=== PATIENT | female | born 1970 | race Caucasian/White ===

== ENCOUNTER 2016-08-31 00:02 | Emergency (ER) | payer MEDICARE, OTHER ==
--- NOTE | 2016-08-31 00:30 | ED ---
General Adult HPI - General Chief complaint: Upper Respiratory Infection Stated complaint: nicole, cough Time Seen by Provider: 08/31/16 00:02 Source: patient, EMS, RN notes reviewed Mode of arrival: EMS - History of Present Illness Initial comments: This is a 45-year-old female who was brought in by EMS for evaluation of low back pain after falling out of bed. She [id number] out of bed about 1 foot to the ground EMS found her to be landing on her face. She complains of a cough for about one week she does a history of a positive PPD test about 5 or 6 years ago. She is never been diagnosed with active TB. She is a smoker she states she's had a cough no fevers chills sweats no phlegm production. Just complains of increased low back pain she has chronic low back pain. She denies any loss of function to her upper or lower extremities no pain in her face nose teeth jaw. No neck pain. - Related Data Home Medications Medication Instructions Recorded Confirmed Carvedilol [Coreg] 08/31/16 Chlorzoxazone 08/31/16 Cholecalciferol [Vitamin D3] 08/31/16 DULoxetine HCL [Cymbalta] 08/31/16 Felodipine [Felodipine ER] 08/31/16 Fenofibrate Nanocrystallized 08/31/16 [Fenofibrate] Fluticasone Propionate [Flovent 08/31/16 Diskus] Fluticasone/Salmeterol [Advair 08/31/16 250-50 Diskus] Furosemide [Lasix] 08/31/16 Gabapentin [Neurontin] 08/31/16 Haloperidol [Haldol] 08/31/16 Hydrocodone/Acetaminophen [Vicodin 08/31/16 5-300 mg Tablet] QUEtiapine [SEROquel] 08/31/16 Trihexyphenidyl HCl [Artane] 08/31/16 clonazePAM [KlonoPIN] 08/31/16 diphenhydrAMINE HCL [Benadryl] 08/31/16 levETIRAcetam [Keppra] 08/31/16 traZODone HCL 08/31/16 Previous Rx's Medication Instructions Recorded Azithromycin [Zithromax Z-pack] 250 mg PO DIRECTED #6 tab 08/31/16 predniSONE 20 mg PO BID #10 tab 08/31/16 Allergies Allergy/AdvReac Type Severity Reaction Status Date / Time morphine Allergy Intermediate Anaphylaxis Verified 08/31/16 00:13 levofloxacin [From Levaquin] Allergy Anaphylaxis Verified 08/31/16 00:15 aspirin AdvReac Intermediate Anaphylaxis Verified 08/31/16 00:14 Review of Systems ROS Statement: Those systems with pertinent positive or pertinent negative responses have been documented in the HPI. ROS Other: All systems not noted in ROS Statement are negative. Past Medical History Past Medical History: COPD, Hypertension, Thyroid Disorder History of Any Multi-Drug Resistant Organisms: None Reported Past Psychological History: No Psychological Hx Reported Smoking Status: Current every day smoker Past Alcohol Use History: None Reported Past Drug Use History: None Reported General Exam - General Exam Comments Initial Comments: This is a well-developed well-nourished awake alert oriented 3 female General appearance: alert, in no apparent distress Head exam: Present: atraumatic, normocephalic, normal inspection Eye exam: Present: normal appearance, PERRL, EOMI. Absent: scleral icterus, conjunctival injection, periorbital swelling ENT exam: Present: normal exam, mucous membranes moist Neck exam: Present: normal inspection. Absent: tenderness, meningismus, lymphadenopathy Respiratory exam: Present: decreased breath sounds. Absent: respiratory distress, wheezes, rales, rhonchi, stridor Cardiovascular Exam: Present: regular rate, normal rhythm, normal heart sounds. Absent: systolic murmur, diastolic murmur, rubs, gallop, clicks GI/Abdominal exam: Present: soft, normal bowel sounds. Absent: distended, tenderness, guarding, rebound, rigid Extremities exam: Present: normal inspection, full ROM, normal capillary refill. Absent: tenderness, pedal edema, joint swelling, calf tenderness Back exam: Present: normal inspection, tenderness, paraspinal tenderness. Absent: CVA tenderness (R), CVA tenderness (L), vertebral tenderness, rash noted Neurological exam: Present: alert, oriented X3, CN II-XII intact Psychiatric exam: Present: normal affect, normal mood Skin exam: Present: warm, dry, intact, normal color. Absent: rash Course Vital Signs 08/31/16 08/31/16 00:08 01:11 Temperature 97.4 F L Pulse Rate 85 88 Respiratory 20 Rate Blood Pressure 116/59 O2 Sat by Pulse 94 L Oximetry Medical Decision Making - Medical Decision Making Patient did get improvement after the updraft she'll be discharged on antibiotics. We did a long discussion lasted 3.2 minutes for smoking cessation. - Radiology Data Radiology results: report reviewed, image reviewed (I did review the imaging and reports there is a limited infiltrate in the left lung also degenerative changes to the lumbar spine no acute changes) Disposition Clinical Impression: Pneumonia, COPD exacerbation, Lumbar strain Disposition: HOME SELF-CARE Condition: Good Instructions: Bacterial Pneumonia (ED), COPD (Chronic Obstructive Pulmonary Disease) (ED), How to Stop Smoking (ED) Prescriptions: Azithromycin [Zithromax Z-pack] 250 mg PO DIRECTED #6 tab predniSONE 20 mg PO BID #10 tab
--- NOTE | 2016-08-31 00:50 | XR ---
EXAMINATION TYPE: XR chest 2V DATE OF EXAM: 08/31/2016 12:42 AM COMPARISON: 03/04/2013 HISTORY: Cough TECHNIQUE: Frontal and lateral views of the chest are obtained. FINDINGS: Heart and mediastinum are normal. There is possible small patch of infiltrate in the left midlung. The other lung gambino are clear. There is no pleural effusion. IMPRESSION: Possible minimal pneumonia in the left midlung is new compared to old exam.
--- NOTE | 2016-08-31 00:51 | XR ---
EXAMINATION TYPE: XR lumbosacral spine min 4V DATE OF EXAM: 08/31/2016 12:42 AM COMPARISON: 10/01/2013 HISTORY: Low back pain TECHNIQUE: 5 views FINDINGS: Fairly normal alignment. There is moderate narrowing at L3-4 disc with sclerosis and vacuum disc. Pos terior elements are intact. There is no compression fracture. Sacroiliac joints are normal. IMPRESSION: There is moderate spondylosis at L3-4. No fracture. There is progression of the disc dise ase compared to old exam. There is significant sclerosis and this raises the possibility of old chron ic discitis.
[2016-08-31] MEDS ORDERED: IPRATROPIUM-ALBUTEROL 3 ML NEB INHALATION STA (00:55)
[2016-08-31] MEDS ORDERED: AZITHROMYCIN 500 MG TAB PO STA (00:58)
[2016-08-31] MEDS ORDERED: BENZONATATE 100 MG CAP PO STA (00:58)
[2016-08-31 03:00] VITALS: BP 138/76; PULSE 78; RESP 22; TEMP 98.8
== END 2016-08-31 03:01 | disposition home or self-care (01) ==
LOC: EC 00:02
DX: J18.9 Pneumonia, unspecified organism (principal); J44.1 Chronic obstructive pulmonary disease with (acute) exacerbation; S39.012A Strain of muscle, fascia and tendon of lower back, initial encounter; W06.XXXA Fall from bed, initial encounter; I10 Essential (primary) hypertension; E07.9 Disorder of thyroid, unspecified; Z79.899 Other long term (current) drug therapy; Z79.51 Long term (current) use of inhaled steroids; F17.200 Nicotine dependence, unspecified, uncomplicated; Z88.1 Allergy status to other antibiotic agents; Z88.5 Allergy status to narcotic agent; Z88.6 Allergy status to analgesic agent
CPT/HCPCS: 71020; 72110; 94640; 99284

== ENCOUNTER → 2017-02-05 | Outpatient (CLI) | payer MEDICARE, OTHER ==
--- NOTE | 2017-02-05 15:13 | CT ---
EXAMINATION TYPE: CT shoulder LT wo con DATE OF EXAM: 02/05/2017 COMPARISON: NONE HISTORY: Recurrent left shoulder dislocations. CT DLP: 443 mGycm Automated exposure control for dose reduction was used. FINDINGS: There is severe degenerative change in the glenohumeral joint with remodeling of the gracie l head and pseudocystic change. The glenoid is eroded and thinned. There is decentering of the gracie l head within the glenoid. No fracture or dislocation is seen. IMPRESSION: SEVERE DEGENERATIVE CHANGE WITH LOSS OF THE GLENOID CUP AND LOSS OF THE ROUNDNESS OF THE HUMERAL HEAD . THIS LIKELY EXPLAINS THE DISLOCATIONS. IS ALSO STRONGLY SUSPICIOUS FOR COMPLETE LOSS OF THE LABRUM.
== END | disposition home or self-care (01) ==
LOC: RADCTMAIN 14:35
PROVIDERS: ATTEND Orthopaedic Surgery Sports Medicine
DX: S43.005A Unspecified dislocation of left shoulder joint, initial encounter (principal)

== ENCOUNTER → 2017-02-24 | Outpatient (CLI) | payer MEDICARE, OTHER ==
--- NOTE | 2017-02-24 14:21 | USB ---
Reason for exam: history of breast cancer, mastectomy. History: Patient has history of breast cancer at age 35. Family history of breast cancer in mother and breast cancer in sister. Mastectomy of both breasts. Physical Findings: Nurse did not find any significant physical abnormalities on exam. US Breast BILAT Right breast ultrasound includes all four quadrants, the retroareolar region and axilla. Finding demonstrates a 5 x 3 x 5mm lesion too small to characterize at 7 o'clock, possibly lymph node or some tissue heterogeneity. A 6 month follow up recommended to exclude an early small mass. These results were verbally communicated with the patient and result sheet given to the patient on 02/24/17. ASSESSMENT: Probably benign, BI-RAD 3 RECOMMENDATION: Ultrasound of the right breast in 6 months. [facility]
== END | disposition home or self-care (01) ==
LOC: RADUSWWP 13:04
PROVIDERS: ATTEND Family Medicine
DX: R92.8 Other abnormal and inconclusive findings on diagnostic imaging of breast (principal); Z85.3 Personal history of malignant neoplasm of breast

== ENCOUNTER 2022-05-27 14:42 | Emergency (ER) | payer MEDICARE, OTHER ==
[2022-05-27 14:47] VITALS: TEMP 98.5
--- NOTE | 2022-05-27 15:09 | XR ---
EXAMINATION TYPE: XR foot complete RT DATE OF EXAM: 05/27/2022 COMPARISON: NONE HISTORY: Injury TECHNIQUE: Frontal, lateral and oblique images of the right ankle are obtained. COMPARISON: None. FINDINGS: Comminuted moderately displaced fractures of the midshaft of the second and third metatarsa ls and mildly fracture of the base of the fourth metatarsal. Suspected avulsion fracture at the base of the first metatarsal with adjacent fragment along its medial aspect. No dislocations. There is jose r rounding edema of the dorsal foot overlying the metacarpals. Dorsal midfoot osteophytosis. IMPRESSION: Comminuted moderately displaced fractures of the mid shafts of the second and third metatarsals with mildly displaced fracture of the base of the fourth metatarsal and suspected avulsion fracture at the base of the first metatarsal.
[2022-05-27] MEDS ORDERED: HYDROmorphone 1 MG/ML 1 ML SYRINGE IVP STA (15:59)
[2022-05-27] MEDS ORDERED: SODIUM CHLORIDE 0.9% 1,000 ML IV STA (15:59)
--- NOTE | 2022-05-27 16:04 | ED ---
General Adult HPI - General Chief complaint: Extremity Injury, Lower Stated complaint: Fall-R foot injury Time Seen by Provider: 05/27/22 15:02 Source: patient Mode of arrival: ambulatory Limitations: no limitations - History of Present Illness Initial comments: Dictation was produced using [employer] dictation software. please excuse any grammatical, word or spelling errors. Chief Complaint: 51-year-old female presents to the emergency Department with right foot injury History of Present Illness: 51-year-old female presents to the emergency department right foot injury. Last week patient states that she had the door slam into her foot. States that was so forceful that her foot got caught in door. Patient didn't think much of it. She called her primary care doctor who said that she needed an x-ray of her foot. Given walking around on it. She notes that there is significant bruising. Patient states that she has significant pain. The ROS documented in this emergency department record has been reviewed and co nfirmed by me. Those systems with pertinent positive or negative responses have been documented in the HPI. All other systems are other negative and/or noncontributory. PHYSICAL EXAM: General Impression: Alert and oriented x3, not in acute distress HEENT: Normocephalic atraumatic, extra-ocular movements intact, pupils equal and reactive to light bilaterally, mucous membranes moist. Cardiovascular: Heart regular rate and rhythm Chest: Able to complete full sentences, no retractions, no tachypnea Musculoskeletal: Pulses present and equal in all extremities, no peripheral edema Motor: no focal deficits noted Right foot: Significant only swollen, pain in the midfoot, significant ecchymoses to all the toes Neurological: CN II-XII grossly intact, no focal motor or sensory deficits noted Skin: Intact with no visualized rashes Psych: Normal affect and mood ED course: 51-year-old male presents to the emergency room for right foot injury. Patient states that the event occurred last week. She's been having bleeding on it. Once upon arrival are within acceptable limits. X-ray shows comminuted displaced fractures of the mid shaft of the second and third metatarsals, mild displacement fracture of the base of the fourth metatarsal and suspected avulsion fracture at the base of the fifth metatarsal. Patient given IV analgesics. Case discussed with orthopedic Surgery, Nataly Molina who discussed case with her attending physician, Dr. Waller who requests lower extremity be splinted and patient be sent to orthopedic surgery clinic tomorrow. - Related Data Home Medications Medication Instructions Recorded Confirmed Chlorzoxazone [Parafon Forte DSC] 08/31/16 Cholecalciferol [Vitamin D3] 08/31/16 DULoxetine HCL [Cymbalta] 08/31/16 Felodipine [Felodipine ER] 08/31/16 Fenofibrate Nanocrystallized 08/31/16 [Fenofibrate] Fluticasone Propion/Salmeterol 08/31/16 [Advair 250-50 Diskus] Fluticasone Propionate [Flovent 08/31/16 Diskus] Furosemide [Lasix] 08/31/16 Gabapentin [Neurontin] 08/31/16 Hydrocodone/Acetaminophen [Vicodin 08/31/16 5-300 mg Tablet] QUEtiapine [SEROquel] 08/31/16 Trihexyphenidyl HCl [Artane] 08/31/16 carvediloL [Coreg] 08/31/16 clonazePAM [KlonoPIN] 08/31/16 diphenhydrAMINE HCL [Benadryl] 08/31/16 haloperidoL [Haldol] 08/31/16 levETIRAcetam [Keppra] 08/31/16 traZODone HCL 08/31/16 Previous Rx's Medication Instructions Recorded Azithromycin [Zithromax Z-pack] 250 mg PO DIRECTED #6 tab 08/31/16 predniSONE [Deltasone] 20 mg PO BID #10 tab 08/31/16 Allergies Allergy/AdvReac Type Severity Reaction Status Date / Time morphine Allergy Intermediate Anaphylaxis Verified 05/27/22 14:47 levofloxacin [From Levaquin] Allergy Anaphylaxis Verified 05/27/22 14:47 aspirin AdvReac Intermediate Anaphylaxis Verified 05/27/22 14:47 Review of Systems ROS Statement: Those systems with pertinent positive or pertinent negative responses have been documented in the HPI. ROS Other: All systems not noted in ROS Statement are negative. Past Medical History Past Medical History: COPD, Hypertension, Thyroid Disorder History of Any Multi-Drug Resistant Organisms: None Reported Past Surgical History: No Surgical Hx Reported Past Psychological History: No Psychological Hx Reported Smoking Status: Current every day smoker Past Alcohol Use History: None Reported Past Drug Use History: None Reported General Exam Limitations: no limitations Course Vital Signs 05/27/22 14:45 Temperature 98.5 F Pulse Rate 94 Respiratory 20 Rate Blood Pressure 110/77 O2 Sat by Pulse 95 Oximetry Procedures - Orthopedic Splinting/Casting Injury #1 Side: right Lower Extremity Injury Location: short leg Other Orthopedic Equipment: crutches Medical Decision Making - Lab Data Result diagrams: 05/27/22 16:26 05/27/22 16:26 Lab Results 05/27/22 05/27/22 05/27/22 Range/Units 16:26 16:26 16:26 WBC 7.6 (3.8-10.6) k/uL RBC 3.69 L (3.80-5.40) m/uL Hgb 13.0 (11.4-16.0) gm/dL Hct 37.4 (34.0-46.0) % MCV 101.4 H (80.0-100.0) fL MCH 35.3 H (25.0-35.0) pg MCHC 34.8 (31.0-37.0) g/dL RDW 13.4 (11.5-15.5) % Plt Count 251 (150-450) k/uL MPV 8.3 Neutrophils % 73 % Lymphocytes % 19 % Monocytes % 5 % Eosinophils % 2 % Basophils % 0 % Neutrophils # 5.5 (1.3-7.7) k/uL Lymphocytes # 1.4 (1.0-4.8) k/uL Monocytes # 0.4 (0-1.0) k/uL Eosinophils # 0.1 (0-0.7) k/uL Basophils # 0.0 (0-0.2) k/uL Macrocytosis Slight PT 10.2 (9.0-12.0) sec INR 0.9 (<1.2) APTT 25.7 (22.0-30.0) sec Sodium 131 L (137-145) mmol/L Potassium 4.1 (3.5-5.1) mmol/L Chloride 92 L (98-107) mmol/L Carbon Dioxide 31 H (22-30) mmol/L Anion Gap 8 mmol/L BUN 9 (7-17) mg/dL Creatinine 0.57 (0.52-1.04) mg/dL Est GFR (CKD-EPI)AfAm >90 (>60 ml/min/1.73 sqM) Est GFR (CKD-EPI)NonAf >90 (>60 ml/min/1.73 sqM) Glucose 116 H (74-99) mg/dL Calcium 8.5 (8.4-10.2) mg/dL Disposition Clinical Impression: Foot fracture Disposition: HOME SELF-CARE Condition: Fair Instructions (If sedation given, give patient instructions): Foot Fracture in Adults (ED) Additional Instructions: no weight bearing to right foot. Call Dr. Anne office first thing tomorrow morning to make an appointment. they are expecting to see you in the office tomorrow (05/27/22) Is patient prescribed a controlled substance at d/c from ED?: No When asked, does pt state using other controlled substances?: No Referrals: Kaden Waller DO [Doctor of Osteopathic Medicine] - 1-2 days Time of Disposition: 17:24
[2022-05-27 16:47] LABS: Basophils % (A) 0 %; Eosinophils # (A) 0.1 k/uL (0-0.7); Eosinophils % (A) 2 %; HCT 37.4 % (34.0-46.0); Lymphocytes # (A) 1.4 k/uL (1.0-4.8); Lymphocytes % (A) 19 %; MCH 35.3 pg (25.0-35.0); MCHC 34.8 g/dL (31.0-37.0); MCV 101.4 fL (80.0-100.0); Macrocytosis Slight; Mean Platelet Volume 8.3; Monocytes # (A) 0.4 k/uL (0-1.0); Monocytes % (A) 5 %; Neutrophils # (A) 5.5 k/uL (1.3-7.7); Neutrophils % (A) 73 %; Platelet Count 251 k/uL (150-450); RBC 3.69 m/uL (3.80-5.40); RDW 13.4 % (11.5-15.5); WBC 7.6 k/uL (3.8-10.6)
[2022-05-27 16:57] LABS: INR 0.9 (<1.2); Partial Thromboplastin Time 25.7 sec (22.0-30.0); Prothrombin Time 10.2 sec (9.0-12.0)
[2022-05-27 17:00] LABS: African American GFR (CKD) >90 (>60 ml/min/1.73 sqM); Anion Gap 8 mmol/L; Blood Urea Nitrogen 9 mg/dL (7-17); Calcium 8.5 mg/dL (8.4-10.2); Carbon Dioxide 31 mmol/L (22-30); Chloride 92 mmol/L (98-107); Glucose 116 mg/dL (74-99); Non-African American GFR(CKD) >90 (>60 ml/min/1.73 sqM); Potassium 4.1 mmol/L (3.5-5.1); Sodium 131 mmol/L (137-145)
[2022-05-27] MEDS ORDERED: HYDROmorphone 0.5 MG/0.5 ML SYRINGE IVP STA (17:46)
[2022-05-27 17:56] VITALS: BP 114/81; PULSE 92; RESP 18
== END 2022-05-27 19:00 | disposition home or self-care (01) ==
LOC: EC 14:42
DX: S92.901A Unspecified fracture of right foot, initial encounter for closed fracture (principal); I10 Essential (primary) hypertension; J44.9 Chronic obstructive pulmonary disease, unspecified; E03.9 Hypothyroidism, unspecified; F17.200 Nicotine dependence, unspecified, uncomplicated; Z79.899 Other long term (current) drug therapy; Z88.1 Allergy status to other antibiotic agents; Z88.6 Allergy status to analgesic agent; W23.0XXA Caught, crushed, jammed, or pinched between moving objects, initial encounter
CPT/HCPCS: 36415; 80048; 85025; 85610; 85730; 73630; 29515; 99283; 96374; 96375; 96361; J1170 ×2